=== PATIENT | male | born 1935 | race Caucasian/White ===

== ENCOUNTER 2022-04-27 10:20 | Emergency (ER) | payer OTHER ==
[~2022-04-27] VITALS: Ht 165.1 cm; Wt 65.8 kg
[~2022-04-27 10:20] MED LIST: FOLI-43 PO; HYDR-4497 PO; LISI20TA30 PO; LOVA20TA2 PO; METH2.5T PO; OMEP40CA20 PO; TAMS-11 PO
[2022-04-27 10:21] VITALS: BP_SYST 144
--- NOTE | 2022-04-27 10:25 | NUR ---
Pt brought by self, A&Ox4, c/o episode of palpitations, HR 82, O2 98%, skin pink and warm, cap refill <3, VSS, respirations even and unlabored, will cont to monitor.
--- NOTE | 2022-04-27 10:40 | NUR ---
Dr Costa evaluating patient at bedside
[2022-04-27 11:05] LABS: BASOPHILS % (AUTO) 0.9 % (0.0-2.0); EOSINOPHILS # (AUTO) 0.1 K/uL (0.0-0.4); EOSINOPHILS % (AUTO) 1.7 % (0.0-4.0); HEMATOCRIT 36.4 % (36-54); HEMOGLOBIN 12.6 g/dL (14.0-18.0); LYMPHOCYTES # (AUTO) 1.5 K/uL (1.0-5.5); LYMPHOCYTES % (AUTO) 27.8 % (20.5-51.5); MEAN CORPUSCULAR HEMOGLOBIN 33 pg (27-31); MEAN CORPUSCULAR HGB CONC 35 % (32-36); MEAN CORPUSCULAR VOLUME 95 fL (79.0-98.0); MONOCYTES # (AUTO) 0.4 K/uL (0.0-1.0); MONOCYTES % (AUTO) 8.1 % (1.7-9.3); NEUTROPHILS # (AUTO) 3.3 K/uL (1.8-7.7); NEUTROPHILS % (AUTO) 61.5 % (40.0-70.0); PLATELET COUNT (AUTO) 167 K/uL (130-430); RED BLOOD CELL COUNT(AUTO) 3.82 MIL/uL (4.2-6.2); RED CELL DISTRIBUTION WIDTH 13.5 % (9.0-15.0); WHITE BLOOD COUNT (AUTO) 5.4 K/uL (4.8-10.8)
[2022-04-27 11:40] LABS: CHLORIDE 103 mmol/L (98-107); POTASSIUM 4.1 mmol/L (3.5-5.1); SODIUM SERUM 137 mmol/L (136-145)
[2022-04-27 11:41] LABS: ALANINE AMINOTRANSFERASE 28 U/L (12-78); ALBUMIN 3.3 g/dL (3.4-4.8); ANION GAP 9 (5-15); ASPARTATE AMINOTRANSFERASE 38 U/L (10-37); CREATININE 1.02 mg/dL (0.55-1.30); GLUCOSE 140 mg/dL (70-99); TOTAL BILIRUBIN 0.7 mg/dL (0.0-1.0); UREA NITROGEN, BLOOD 16 mg/dL (8-21)
--- NOTE | 2022-04-27 11:55 | NUR ---
pt resting in bed at this time, VSS.
--- NOTE | 2022-04-27 12:30 | NUR ---
Dr Costa given results to patient at this time
--- NOTE | 2022-04-27 12:31 | NUR ---
Pt A&OX4, VSS, respirations even and unlabored .
[2022-04-27 13:02] VITALS: BP_SYST 116
--- NOTE | 2022-04-27 13:03 | NUR ---
Patient given written and verbal discharge instructions and verbalizes understanding. ER MD discussed with patient the results and treatment provided. Patient in stable condition. ID arm band removed. No Rx given. Patient educated on pain management and to follow up with PMD. Pain Scale 0/10. Opportunity for questions provided and answered. Medication side effect fact sheet provided.
== END 2022-04-27 13:02 | disposition home or self-care (01) ==
LOC: SED 10:20
DX: R00.2 Palpitations (principal); F41.9 Anxiety disorder, unspecified; I10 Essential (primary) hypertension; K21.9 Gastro-esophageal reflux disease without esophagitis; Z79.899 Other long term (current) drug therapy
CPT/HCPCS: 36415; 71045; 80053; 83605; 83880; 84484; 85025; 85379; 87040; 93005; 99285

== ENCOUNTER 2023-02-21 19:54 | Emergency (ER) | payer OTHER ==
[~2023-02-21] VITALS: Ht 165.1 cm; Wt 63.5 kg
[2023-02-21 19:55] VITALS: BP_SYST 99
[2023-02-22] MEDS ORDERED: IBUP-1969 PO (00:14)
[2023-02-22 01:12] VITALS: BP_SYST 124
== END 2023-02-22 01:12 | disposition home or self-care (01) ==
LOC: SED 19:54
DX: S90.31XA Contusion of right foot, initial encounter (principal); S40.022A Contusion of left upper arm, initial encounter; K21.9 Gastro-esophageal reflux disease without esophagitis; I10 Essential (primary) hypertension; Z79.899 Other long term (current) drug therapy; W18.2XXA Fall in (into) shower or empty bathtub, initial encounter; Y93.89 Activity, other specified; Y92.89 Other specified places as the place of occurrence of the external cause; Y99.8 Other external cause status
CPT/HCPCS: 70450-TC; 76376; 93005; 99284